=== PATIENT | female | born 1970 | race Caucasian/White ===

== ENCOUNTER 2023-08-04 17:36 | Emergency (ER) | payer BC, SELFPAY ==
[2023-08-04] MEDS ORDERED: Tetracaine 0.5% PF 4 ML BOT ONE (17:54)
[2023-08-04] MEDS ORDERED: Fluorescein Opthalmic Strip ONE (17:54)
== END 2023-08-04 19:40 | disposition home or self-care (01) ==
LOC: CSHERS 17:36
DX: H43.391 Other vitreous opacities, right eye (principal); H53.8 Other visual disturbances
CPT/HCPCS: 99283

== ENCOUNTER 2024-02-19 10:20 | Outpatient (CLI) | payer BC | END 2024-02-19 10:21 | disposition home or self-care (01) | LOC: CSHMAMMO 10:20 | PROVIDERS: ATTEND Nurse Practitioner Women's Health | DX: Z13.820 Encounter for screening for osteoporosis (principal); M85.89 Other specified disorders of bone density and structure, multiple sites | CPT/HCPCS: 77080 ==